=== PATIENT | male | born 1980 | race Caucasian/White ===

== ENCOUNTER 2023-05-01 15:34 | Outpatient (CLI) | payer SELFPAY | END 2023-05-01 15:35 | disposition home or self-care (01) | LOC: NFLDREF 05-02 12:37 | PROVIDERS: PCP Physician Assistant Medical; Referring Provider Physician Assistant Medical; Visit Provider Physician Assistant Medical | DX: R05.9 Cough, unspecified (principal); Z00.00 Encounter for general adult medical examination without abnormal findings; I10 Essential (primary) hypertension | CPT/HCPCS: 87086 ==

== ENCOUNTER 2025-08-18 11:45 | Emergency (ER) | payer OTHER, SELFPAY ==
[2025-08-18] VITALS (11 sets, daily range): BP systolic 143–186; BP diastolic 111–127; PULSE 55–99; RESP 8–40; TEMP 37.1; O2SAT 97–100; BMI 24.0
[2025-08-18 12:15] LABS: Troponin, Point-of-Care* 0.02 ng/ml (0.01-0.04)
[2025-08-18 12:57] LABS: Hematocrit* 45.6 % (37.0-53.0); Hemoglobin* 15.3 gm/dL (13.5-17.5); Immature Granulocytes Abs Auto 0.01 K/uL (0.00-0.30); Immature Granulocytes Pct Auto 0.2 %; Lymphocytes Absolute Auto 1.41 K/uL (0.90-2.90); Mean Corpuscular HGB Conc 34 gm/dL (32-36); Mean Corpuscular Hemoglobin 35 pg (26-34); Mean Corpuscular Volume 103 fL (80-100); RDW Coefficient of Variation % 12.1 % (11.5-15.5); Red Blood Count* 4.43 m/uL (4.30-5.90); White Blood Count* 6.55 K/uL (4.50-11.00)
[2025-08-18 12:58] LABS: Chloride* 100 mmol/L (96-114); Sodium* 135 mmol/L (135-149)
[2025-08-18 12:59] LABS: Potassium* 4.1 mmol/L (3.6-5.1)
[2025-08-18 13:01] LABS: Blood Urea Nitrogen* 7 mg/dL (5-24); Creatinine* 0.7 mg/dL (0.5-1.5); Est. Creatinine Clearance* 117.14; Estimated Glomerular Filt Rate 117 ml/min; Slide Review Reflex No
[2025-08-18 13:02] LABS: Anion Gap 9 mEq/L (7-15); Calcium* 9.9 mg/dL (8.4-10.6); Carbon Dioxide* 26 mmol/L (20-32); Glucose* 120 mg/dL (60-115)
--- NOTE | 2025-08-18 13:21 | ED_ITS ---
HPI - Chest Pain General Date Seen: 08/18/25 Chief Complaint: Chest Pain Stated Complaint: Chest tightness Time Seen by Provider: 08/18/25 11:48 Source: patient Mode of arrival: ambulatory Limitations: no limitations History of Present Illness HPI narrative: Patient is a 45-year-old female presenting to the emergency department for concerns of palpitations. He has a history of alcohol use disorder, smokes cigarettes, hypertension. He states initially an episode of chest tightness this midsternal chest along with feeling of his heart racing that occurred Friday night. Went to [facility] and had an EKG done that he states was normal. He states no further workup was done he went home. He was asymptomatic for the next few days up until this morning. He states today he was again having episodes while he will have palpitations and chest tightness. Denies any history of cardiac disease other than does have a family history of amyloidosis. Did run of his hypertension medicine that he restarted on Friday. States he has been very anxious about the chest pain and rates it a 4/10. States some last a few seconds at a time and seems to happen randomly. He does states he has follow-up with his primary care provider September 07. Does states he gets short of breath when these episodes occur. Drinks 6 beers a day for years he states that has been smoking cigarettes since he was 17. No personal history of heart disease or lung disease. No history of blood clots, cancer, recent surgeries, hemoptysis, unilateral leg swelling Related Data Previous Rx's ?Medication ?Instructions ?Recorded metoprolol succinate 50 mg 50 mg PO QDAY #90 tabs 10/31 03/22 tablet,extended release 24 hr Allergies Allergy/AdvReac Type Severity Reaction Status Date / Time No Known Allergy Allergy Unknown Unknown Uncoded 05/01/23 15:44 Review of Systems Status of ROS Reports: 10 or more systems reviewed and unremarkable except as noted in History and below PFSH PFSH Family History Father Alcohol dependence High blood pressure Cardiac amyloidosis, Onset Age: 65 Social History Narrative: , 1 child Chewing tobacco use Exam Narrative Exam Narrative: Const: Well-nourished, Well-developed, in mild distress Eyes: PERRL, no conjunctival injection, and symmetrical lids HENT: Atraumatic external nose and ears. Moist mucous membranes. Neck: Symmetric, trachea midline, No thyromegaly. CVS: RRR, No murmurs or gallops. Peripheral pulses 2+ and equal in all extremities RESP: Unlabored respiratory effort. Clear to auscultation bilaterally. GI: Nontender/Nondistended, No rebound or guarding. MSK:Extremities w/o deformity, Normal Active ROM Skin: Warm, Dry. No rashes or lesions. Neuro: Normal Muscle tone, No focal neurological deficits. Psych: Awake, Alert, & Oriented x3. Appropriate mood and affect. Const Vital Signs, click to edit/add: Vital Signs - 24 hr 08/18/25 11:58 08/18/25 12:01 08/18/25 12:02 Temperature 98.7 F Pulse Rate 62 62 Pulse Rate [Pulse Oximeter] 99 Respiratory Rate 18 40 H 15 Blood Pressure 159/115 H Blood Pressure [Left Upper Arm] 186/127 H Pulse Oximetry 99 100 97 Oxygen Delivery Method Room Air Room Air 08/18/25 12:15 08/18/25 12:30 08/18/25 12:45 Temperature Pulse Rate 59 L 55 L 61 Pulse Rate [Pulse Oximeter] Respiratory Rate 18 8 L 10 L Blood Pressure Blood Pressure [Left Upper Arm] Pulse Oximetry 98 100 98 Oxygen Delivery Method 08/18/25 13:00 08/18/25 13:10 08/18/25 13:15 Temperature Pulse Rate 64 62 60 Pulse Rate [Pulse Oximeter] Respiratory Rate 15 10 L 17 Blood Pressure 154/114 H Blood Pressure [Left Upper Arm] Pulse Oximetry 99 99 100 Oxygen Delivery Method Room Air 08/18/25 13:30 08/18/25 13:31 Temperature Pulse Rate 58 L 58 L Pulse Rate [Pulse Oximeter] Respiratory Rate 19 21 Blood Pressure 143/111 H Blood Pressure [Left Upper Arm] Pulse Oximetry 99 98 Oxygen Delivery Method Course Vital Signs Vital signs: Initial Vital Signs Temperature 98.7 F 08/18/25 11:58 Temperature Source Temporal Artery Scan 08/18/25 11:58 Pulse Rate 99 08/18/25 11:58 Respiratory Rate 18 08/18/25 11:58 Blood Pressure 186/127 H 08/18/25 11:58 Blood Pressure Mean 146 H 08/18/25 11:58 Blood Pressure Position Sitting 08/18/25 11:58 Pulse Oximetry 99 08/18/25 11:58 Oxygen Delivery Method Room Air 08/18/25 11:58 Vital Signs Temperature 98.7 F 08/18/25 11:58 Pulse Rate 99 08/18/25 11:58 Respiratory Rate 18 08/18/25 11:58 Blood Pressure 186/127 H 08/18/25 11:58 Pulse Oximetry 99 08/18/25 11:58 Oxygen Delivery Method Room Air 08/18/25 11:58 Temperature 98.7 F 08/18/25 11:58 Pulse Rate 58 L 08/18/25 13:31 Respiratory Rate 21 08/18/25 13:31 Blood Pressure 143/111 H 08/18/25 13:31 Pulse Oximetry 98 08/18/25 13:31 Oxygen Delivery Method Room Air 08/18/25 13:10 MDM - Chest Pain MDM Narrative Medical decision making narrative: Patient is a 45-year-old male presenting for chest pain and palpitations. The differential diagnosis of chest pain is broad and includes common etiologies such as musculoskeletal strain, GERD, pneumonia, etc. More serious etiologies considered include PE, coronary artery disease, pneumothorax, aortic dissection, aortic aneurysm. He is otherwise appearing well I concern for care dissection or aortic aneurysm is low. He is PERC negative and PE can not be ruled out. Will do EKG and troponin to look for signs of cardiac abnormalities. He was agreeable to do further lab work but declined chest x-ray. Like did expect chest x-ray likely was negative I informed him I am unable to further removed everything without doing a chest x-ray. He states he understands. EKG interpreted by myself shows normal sinus rhythm with a sinus arrhythmia, rate of 64 beats per minute, and normal intervals, normal axis, no ST or T-wave abnormalities. Point of care troponin within normal limits. He declined a repeat troponin. Since the chest pain he started today I did recommend to do the repeat and he declines. Rest of his lab work shows no concerning abnormalities. On my review vital signs are stable throughout time in in the emergency department. Oximetry stayed in the mid to high 90s. quality assurance monitor body showed no concerning arrhythmias. Considering his main concern is more the palpitations than chest pain I will do a Zio patch to look for any arrhythmias. He is agreeable to this plan. Diagnosis palpitations, atypical chest pain Lab Data Labs: Lab Results 08/18/25 08/18/25 Range/Units 12:00 12:13 WBC 6.55 (4.50-11.00) K/uL RBC 4.43 (4.30-5.90) m/uL Hgb 15.3 (13.5-17.5) gm/dL Hct 45.6 (37.0-53.0) % MCV 103 H (80-100) fL MCH 35 H (26-34) pg MCHC 34 (32-36) gm/dL RDW Coeff of Saman 12.1 (11.5-15.5) % Plt Count 135 L (140-440) K/uL Neut % (Auto) 60.4 (42.0-72.0) % Lymph % (Auto) 21.5 (20-44) % Rusk % (Auto) 16.2 H (0.0-11.0) % Eos % (Auto) 1.5 (0.0-7.0) % Baso % (Auto) 0.2 (0.0-3.0) % Neut # (Auto) 3.96 (1.7-7.0) K/uL Lymph # (Auto) 1.41 (0.90-2.90) K/uL Rusk # (Auto) 1.10 H (0.00-0.90) K/UL Eos # (Auto) 0.10 (0.00-0.50) K/uL Baso # (Auto) 0.01 (0.00-0.30) K/uL Abs Immat Gran (auto) 0.01 (0.00-0.30) K/uL Imm/Tot Granulo (auto) 0.2 % Sodium 135 (135-149) mmol/L Potassium 4.1 (3.6-5.1) mmol/L Chloride 100 (96-114) mmol/L Carbon Dioxide 26 (20-32) mmol/L Anion Gap 9 (7-15) mEq/L BUN 7 (5-24) mg/dL Creatinine 0.7 (0.5-1.5) mg/dL Estimated Creat Clear 117.14 Estimated GFR 117 ml/min Glucose 120 H (60-115) mg/dL Calcium 9.9 (8.4-10.6) mg/dL POC Troponin I 0.02 (0.01-0.04) ng/ml ECG Data Attestation: I personally reviewed and interpreted this ECG as follows: Prior ECG tracings: not available for review Interpretation: Normal sinus rhythm 64 beats per minute, normal intervals, normal axis, no ST or T-wave abnormalities. Discharge Plan Discharge Clinical Impression: Atypical chest pain, Heart palpitations Patient Disposition: Home, Self-Care Condition: Stable Instructions: Heart Palpitations (DC) Additional Instructions: Where the Zio patch for 14 days and follow-up with the primary care provider. Return to emergency department for new or worsening symptoms. Prescriptions: No Action metoprolol succinate 50 mg tablet extended release 24 hr 50 mg PO QDAY Qty: 90 1RF Rx Instructions: 1 tablet, once daily for high blood pressure Follow Up/Referrals: Aliyah Kirkland PA-C [Primary Care Provider, Family Practice] Stand Alone Forms: MyHealth Info Instructions
== END 2025-08-18 13:43 | disposition home or self-care (01) ==
PROVIDERS: Emergency Provider Student in an Organized Health Care Education/Training Program; PCP Physician Assistant Medical
DX: R00.2 Palpitations (principal); R07.9 Chest pain, unspecified
CPT/HCPCS: 36415; 80048; 84484; 85025; 93005; 93246; 99284